=== PATIENT | female | born 1985 ===

== ENCOUNTER 2018-03-15 23:07 | Inpatient (IN) | payer OTHER, SELFPAY ==
[2018-03-15 23:21] VITALS: BP 133/86; PULSE 71; RESP 16; TEMP 35.9; O2SAT 100; BMI 48.4
[2018-03-15] MEDS: ONDANSETRON 4 MG ODT PO (23:34)
[2018-03-16] VITALS (11 sets, daily range): BP systolic 106–136; BP diastolic 59–84; PULSE 55–77; RESP 15–18; TEMP 36.2–36.9; O2SAT 97–100; BMI 48.4
--- NOTE | 2018-03-16 | DI.MRI.S_ITS ---
PROCEDURE: MR ABDOMEN WO CON INDICATIONS: Pancreatitis TECHNIQUE: Coronal HASTE through the abdomen, axial 2-D FLASH in- and [id number], and breath-hold T2 FSE with fat saturation through the biliary system and pancreas. Oblique coronal and axial thin-slice HASTE, radial thick-slab HASTE centered on the extrahepatic bile ducts. Intravenous secretin: Not requested. COMPARISON: [facility], US, US ABDOMEN COMPLETE, 03/16/2018, 5:37. FINDINGS: Image quality: Suboptimal due to the patient's body habitus and significant motion artifacts. Pancreas and biliary system: There are gallstones. Gallbladder wall is thickened. There is trace pericholecystic fluid. Intra- and extra-hepatic biliary ducts are non dilated. Pancreas is normal in morphology, without adjacent soft tissue edema. Pancreatic duct is normal in caliber, without developmental anomalies. Other solid organs: Liver is normal in size. Spleen is normal in size. No adrenal nodules. Both kidneys are normal in size, without hydronephrosis. Nodes and vessels: No retroperitoneal or mesenteric adenopathy by size criteria. Aorta and inferior vena cava are normal in size. Bowel and peritoneum: Unenhanced bowel loops are normal in caliber. No free fluid. Lung bases: No basal pleural effusions. Heart size is normal. Bones and soft tissues: No ventral hernias. Bone marrow is of normal overall signal. IMPRESSION: 1. Cholelithiasis. There is gallbladder wall thickening and trace pericholecystic fluid, consistent with acute cholecystitis. 2. No intrahepatic biliary dilation. 3. Suboptimal examination due to the patient's body habitus and significant motion artifacts. Common hepatic duct and common bile duct are suboptimally visualized. Dictated by: Melissa Torres M.D. on 03/16/2018 at 16:37 Approved by: Melissa Torres M.D. on 03/16/2018 at 16:47
[2018-03-16 00:01] LABS: WBC Urine None Seen (0-5/HPF)
[2018-03-16 00:08] LABS: Bacteria Urine Few (2-10); RBC Urine 5-10/HPF (0-5/HPF)
[2018-03-16 00:09] LABS: Culture Indicated Urine Cult Not Indicated; Mucus Urine 1+ (Negative)
[2018-03-16] MEDS: SODIUM CHLORIDE 0.9% 1,000 ML 1000 ML IV (03:53)
[2018-03-16] MEDS: HALOPERIDOL 5 MG/ML VIAL 2 MG IV (03:53)
[2018-03-16] MEDS: diphenhydrAMINE 50 MG/ML VIAL 25 MG IV (03:54)
[2018-03-16] MEDS: ONDANSETRON 4 MG/2 ML INJ IV (03:55)
[2018-03-16 04:05] LABS: Add Manual Diff / Slide Review NO; Basophils Percent Auto 0.4 % (0-2); Eosinophils Percent Auto 0.2 % (2-4); Hematocrit 38.9 % (36-46); Hemoglobin 13.1 g/dL (12.0-16.0); Lymphocytes Percent Auto 14.7 % (25-40); Mean Corpuscular HGB Conc 33.8 % (30-36); Mean Corpuscular Hemoglobin 29.9 PG (26-34); Mean Corpuscular Volume 88.3 fL (80-100); Monocytes Percent Auto 5.2 % (3-14); Neutrophils Absolute Auto 6400 /uL (3000-5900); Neutrophils Percent Auto 79.5 % (50-75); Platelet Count 289 X10^3/uL (150-400); Red Cell Distribution Width 13.1 % (11.6-14.8)
[2018-03-16 04:18] LABS: Alanine Aminotransferase 477 IU/L (9-52); Albumin 4.7 g/dL (3.5-5.0); Albumin Globulin Ratio 1.2 (1.0-2.8); Alkaline Phosphatase 116 U/L (38-126); Aspartate Aminotransferase 523 IU/L (14-36); BUN Creatinine Ratio 18.6 (6-22); Bilirubin Total 1.1 mg/dL (0.2-1.3); Blood Urea Nitrogen 13 mg/dL (7-17); Calcium 9.7 mg/dL (8.4-10.2); Carbon Dioxide 27 mmol/L (22-32); Chloride 103 mmol/L (98-107); Estimated Glomerular Filt Rate > 60.0 mL/min (>60); Globulin 3.9 g/dL (1.7-4.1); Glucose 137 mg/dL (70-100); HEMOLYSIS < 15 (0-50); Lactate (Lactic Acid) 0.8 mmol/L (0.7-2.1); Lipase 1189 U/L (23-300); Potassium 3.8 mmol/L (3.4-5.1); Sodium 143 mmol/L (137-145); Total Protein 8.6 g/dL (6.3-8.2)
--- NOTE | 2018-03-16 04:43 | DI.US.S_ITS ---
PROCEDURE: US ABDOMEN COMPLETE INDICATIONS: ELEVATED LIVER ENZYMES; PAIN TECHNIQUE: Real-time scanning was performed of the abdominal and retroperitoneal organs, with image documentation. COMPARISON: None. FINDINGS: Liver: Liver is normal in size and demonstrate diffuse increased echotexture. Gallbladder: Gallbladder contains small gallstones. The bladder wall is mildly thickened measuring 3.6 mm. No pericholecystic fluid collection or sonographic Simeon's sign. Biliary ducts: Intrahepatic bile ducts are non-dilated. Extrahepatic bile duct caliber measures 6.3 mm. Normal is 6-7 mm or less in diameter, or 10 mm or less post-cholecystectomy. Pancreas: Visualized portions of the pancreas are sonographically normal. Spleen: Spleen is normal in size and homogeneous in echotexture. Kidneys: Kidneys are normal in size and echotexture. Right kidney measures 12.7 cm long; left kidney measures 12.8 cm long. No hydronephrosis or nephrolithiasis. No solid masses. Aorta: Visualized aorta is normal in caliber at less than 3 cm. Iliacs: Proximal common iliac arteries are normal in caliber at less than 2.5 cm. IVC: Intrahepatic inferior vena cava is patent. Miscellaneous: No free abdominal fluid. IMPRESSION: 1. Cholelithiasis. The gallbladder is mildly thickened. No pericholecystic fluid collection or sonographic Simeon sign. Recommend clinical correlation for early acute cholecystitis. 2. Diffusely increased hepatic echotexture. This finding is most likely secondary to hepatic fatty infiltration although other hepatocellular disease may have a similar appearance. Recommend clinical correlation. No significant discrepancy with the night filler radiology preliminary report. Dictated by: Melissa Torres M.D. on 03/16/2018 at 8:05 Approved by: Melissa Torres M.D. on 03/16/2018 at 8:07
--- NOTE | 2018-03-16 06:11 | ED_ITS ---
HPI - Abdominal Pain General Chief Complaint: Abdominal Pain Stated Complaint: stomach pains History of Present Illness HPI narrative: HPI 32-year-old female with a history of gastric sleeve surgery ~6 months ago presents complaining of poorly characterized epigastric pain of approximately 4 hours duration that radiates across her upper abdomen, no relief without home Zofran, endorses mild nausea, no vomiting, continues to pass flatus and stool at baseline. Patient has had several prior similar episodes following your surgery, has not followed up with her surgeon. No fevers, chills, chest pain, shortness breath, dysuria or urinary frequency. Patient unable to identify or relieving factors. M/S/F/SocHx notable for: please see HPI; remainder reviewed with patient and in chart. ROS: Negative constitutional, eye, cardiovascular, pulmonary, GI, , MSK, skin , neurologic, psychiatric, endocrine unless noted in the HPI. Exam Gen: Pleasant, non-toxic appearing, resting comfortably. HEENT: NC, AT, PEERL, EOMI. Resp: Clear to auscultation bilaterally, normal work of breathing, no accessory muscle usage. Card: Regular rate and rhythm with no murmurs, rubs, or gallops, extremities warm and well perfused. GI: mild epigastric tenderness palpation, otherwise nontender to palpation throughout all quadrants, no focal tenderness at McBurney's point, negative Simeon's sign, non-distended, no rebound or guarding. : No suprapubic tenderness to palpation. MSK: No visible deformities, strength and tone without visually appreciable deficit. Skin: Normal color with no visible lesions. Neuro: AO x 3, no facial asymmetry, vision and hearing WNL. Psych: Mood and affect appropriate. Labs / Imaging: WBC 8.0, Hb 13.1, Na 143, K 3.8, AST 523, ALT 477, lipase 1189, ALP 116, total bilirubin 1.1, lactic 0.8 UA - few bacteria, negative nitrate, negative leukocyte esterase. Ultrasound right upper quadrant: no pericholecystic fluid, anterior wall ~4 mm, dependent stones. Radiologist read pending. MDM Previous chart, nursing note, labs, imaging, and vitals reviewed. A: 32-year-old female with a history of gastric sleeve surgery ~6 months ago presents complaining of poorly characterized epigastric pain of approximately 4 hours duration that radiates across her upper abdomen, no relief without home Zofran, endorses mild nausea, no vomiting, continues to pass flatus and stool at baseline. DDx: biliary disease (cholelithiasis, cholecystitis, cholangitis, choledocholithiasis), pancreatitis, gastritis, GERD Evaluation: laboratory studies concerning for choledocholithiasis, initial interpretation ultrasound (radiologist pending) notable for wall thickening without pericholecystic fluid, no clear evidence of stone in the common bile duct. Discuss case with the surgeon special education bus driver, Dr. Guillen. Patient admitted for further evaluation including possible MRCP and consideration of surgery. Impression: suspected gallstone pancreatitis (please reference below for remainder of encounter information) Related Data Allergies Allergy/AdvReac Type Severity Reaction Status Date / Time SULFA (sulfonamide) Allergy Unknown Uncoded 03/15/18 23:21 Exam Initial Vital Signs Initial Vital Signs: Vital Signs Temperature 96.7 F L 03/15/18 23:21 Pulse Rate 71 03/15/18 23:21 Respiratory Rate 16 03/15/18 23:21 Blood Pressure 133/86 H 03/15/18 23:21 Pulse Oximetry 100 03/15/18 23:21 Course Orders Ordered: ED Orders 03/15/18 23:50 Urine Microscopic Stat 03/16/18 03:55 Complete Blood Count AUTO DIFF Stat Comprehensive Metabolic Panel Stat Lactate (Lactic Acid) Stat Lipase Stat 03/16/18 04:43 US abdomen complete Stat Discontinued Medications Diphenhydramine HCl (Benadryl) 25 mg IV NOW ONE Stop: 03/16/18 01:38 Last Admin: 03/16/18 03:54 Dose: 25 mg Haloperidol (Haldol) 2 mg IV NOW ONE Stop: 03/16/18 01:38 Last Admin: 03/16/18 03:53 Dose: 2 mg Sodium Chloride (Normal Saline 0.9%) 1,000 mls @ 1,000 mls/hr IV BOLUS ONE Stop: 03/16/18 02:36 Last Infusion: 03/16/18 05:12 Dose: 1,000 mls/hr Admin: 03/16/18 03:53 Dose: 1,000 mls/hr Ondansetron HCl (Zofran Odt) 4 mg PO NOW ONE Stop: 03/15/18 23:34 Last Admin: 03/15/18 23:34 Dose: 4 mg Vital Signs - 8 hr 03/15/18 23:21 Temperature 96.7 F L Pulse Rate 71 Respiratory Rate 16 Blood Pressure 133/86 H Pulse Oximetry 100 MDM - Abdominal Pain Lab Data Result diagrams: 03/16/18 03:55 03/16/18 03:55 Lab Results 03/15/18 03/16/18 03/16/18 Range/Units 23:50 03:55 03:55 WBC 8.0 (4.5-11.0) X10^3/uL RBC 4.40 (4.0-5.2) X10^6/uL Hgb 13.1 (12.0-16.0) g/dL Hct 38.9 (36-46) % MCV 88.3 (80-100) fL MCH 29.9 (26-34) PG MCHC 33.8 (30-36) % RDW 13.1 (11.6-14.8) % Plt Count 289 (150-400) X10^3/uL Neut % (Auto) 79.5 H (50-75) % Lymph % (Auto) 14.7 L (25-40) % [place] % (Auto) 5.2 (3-14) % Eos % (Auto) 0.2 L (2-4) % Baso % (Auto) 0.4 (0-2) % Neut # (Auto) 6400 H (3557-1274) /uL Sodium 143 (137-145) mmol/L Potassium 3.8 (3.4-5.1) mmol/L Chloride 103 (98-107) mmol/L Carbon Dioxide 27 (22-32) mmol/L BUN 13 (7-17) mg/dL Creatinine 0.70 (0.52-1.04) mg/dL Estimated GFR > 60.0 (>60) mL/min BUN/Creatinine Ratio 18.6 (6-22) Glucose 137 H (70-100) mg/dL Lactate (0.7-2.1) mmol/L Calcium 9.7 (8.4-10.2) mg/dL Total Bilirubin 1.1 (0.2-1.3) mg/dL AST 523 H (14-36) IU/L ALT 477 H (9-52) IU/L Alkaline Phosphatase 116 (38-126) U/L Total Protein 8.6 H (6.3-8.2) g/dL Albumin 4.7 (3.5-5.0) g/dL Globulin 3.9 (1.7-4.1) g/dL Albumin/Globulin Ratio 1.2 (1.0-2.8) Lipase 1189 H (23-300) U/L Urine RBC 5-10/hpf H (0-5/HPF) Urine WBC None seen (0-5/HPF) Urine Bacteria Few (2-10) H (None) Urine Mucus 1+ H (Negative) Ur Culture Indicated? Cult not indicated Micro UA Comment Not Reportable 03/16/18 Range/Units 03:55 WBC (4.5-11.0) X10^3/uL RBC (4.0-5.2) X10^6/uL Hgb (12.0-16.0) g/dL Hct (36-46) % MCV (80-100) fL MCH (26-34) PG MCHC (30-36) % RDW (11.6-14.8) % Plt Count (150-400) X10^3/uL Neut % (Auto) (50-75) % Lymph % (Auto) (25-40) % [place] % (Auto) (3-14) % Eos % (Auto) (2-4) % Baso % (Auto) (0-2) % Neut # (Auto) (5047-7333) /uL Sodium (137-145) mmol/L Potassium (3.4-5.1) mmol/L Chloride (98-107) mmol/L Carbon Dioxide (22-32) mmol/L BUN (7-17) mg/dL Creatinine (0.52-1.04) mg/dL Estimated GFR (>60) mL/min BUN/Creatinine Ratio (6-22) Glucose (70-100) mg/dL Lactate 0.8 (0.7-2.1) mmol/L Calcium (8.4-10.2) mg/dL Total Bilirubin (0.2-1.3) mg/dL AST (14-36) IU/L ALT (9-52) IU/L Alkaline Phosphatase (38-126) U/L Total Protein (6.3-8.2) g/dL Albumin (3.5-5.0) g/dL Globulin (1.7-4.1) g/dL Albumin/Globulin Ratio (1.0-2.8) Lipase (23-300) U/L Urine RBC (0-5/HPF) Urine WBC (0-5/HPF) Urine Bacteria (None) Urine Mucus (Negative) Ur Culture Indicated? Micro UA Comment Point of care testing: Point of Care Testing Test Results Negative Urine Dip Bedside Urine Glucose Negative Bedside Urine Bilirubin - Negative Bedside Urine Ketone - Negative Urine Specific [place] 1.025 Bedside Urine Occult Blood +++ Bedside Urine pH 6.0 Bedside Urine Protein +/- 15 Bedside Urine Urobilinogen 1+ 2mg Bedside Urine Nitrite - Negative Bedside Urine Leukocytes - Negative Esterase
[2018-03-16] MEDS: SODIUM CHLORIDE 0.9% 1,000 ML 125 ML IV ×2 (07:10→14:42)
--- NOTE | 2018-03-16 07:50 | PC.ADMIT ---
Admission Note: pt arrived at 0645, in stretcher, no fluids running. fluids started. pt tolerant. pt npo. discussed hospital procedures. and admission process with ptMargaret Davison in to receive report. will continue to monitor.
[2018-03-16 14:39] LABS: Alanine Aminotransferase 868 IU/L (9-52); Albumin 4.1 g/dL (3.5-5.0); Albumin Globulin Ratio 1.1 (1.0-2.8); Alkaline Phosphatase 129 U/L (38-126); Aspartate Aminotransferase 697 IU/L (14-36); BUN Creatinine Ratio 12.9 (6-22); Bilirubin Total 1.2 mg/dL (0.2-1.3); Blood Urea Nitrogen 9 mg/dL (7-17); Calcium 9.5 mg/dL (8.4-10.2); Carbon Dioxide 27 mmol/L (22-32); Chloride 107 mmol/L (98-107); Estimated Glomerular Filt Rate > 60.0 mL/min (>60); Globulin 3.6 g/dL (1.7-4.1); Glucose 90 mg/dL (70-100); HEMOLYSIS < 15 (0-50); Lipase 356 U/L (23-300); Potassium 3.7 mmol/L (3.4-5.1); Sodium 144 mmol/L (137-145); Total Protein 7.7 g/dL (6.3-8.2)
--- NOTE | 2018-03-16 15:11 | PM.HP.1 ---
History of Present Illness Date Patient Seen: 03/16/18 Time Patient Seen: 10:11 Chief complaint: stomach pains Narrative: Vero is a pleasant 32-year-old lady who was visiting friends. She reports that she and her 7-year-old son live in [place] again and she had some time off so she came to visit a close friend. She developed abdominal pain last night that was severe enough to bring her to the emergency room. This is not the 1st such episode. She reports that she has had them at least once or twice in the past and been seen in the emergency room in [place]. She says nothing ever comes of the pain and she is generally given something for nausea and sent home. She adds that she had a gastric sleeve operation about 10 months ago. She has lost approximately 100 lb. She was not aware that she has gallstones prior to this admission. Currently, she says she is completely pain-free. She wants to avoid having surgery away from home and would like very much to be able to go back to [place] before having any sort of operative intervention. Patient History Medical History Diabetes (Acute) Family & Social History Social History: household members children Safety & Behavioral: Feels Safe in Current Yes Environment Suicidal Ideation Description None Tobacco & Substance use: Smoking Status Former smoker alcohol intake frequency holiday/special occasion Substance Use Type does not use Meds Home Medications Medication Instructions Recorded Confirmed Type atorvastatin 10 mg PO DAILY 03/16/18 03/16/18 History metformin 2,000 mg PO BID 03/16/18 03/16/18 History sertraline 100 mg PO DAILY 03/16/18 03/16/18 History Allergies Allergy/AdvReac Type Severity Reaction Status Date / Time SULFA (sulfonamide) Allergy Unknown Uncoded 03/15/18 23:21 Review of Systems Review of Systems All systems reviewed & are unremarkable except as noted in HPI and below Exam Vital Signs (past 8 hours): - 03/16/18 08:00 03/16/18 13:00 03/16/18 13:06 Temperature 97.7 F 98.3 F 98.3 F Pulse Rate 61 66 66 Respiratory Rate 16 15 15 Blood Pressure 106/64 134/73 H Pulse Oximetry 97 99 99 Oxygen Delivery Method Room Air Narrative Exam Narrative: Very pleasant young woman in no obvious distress. HEENT: Normocephalic and atraumatic, pupils are equal round and reactive to light accommodation with anicteric sclera Lungs: Clear bilaterally Heart: Regular rate and rhythm Abdomen: Soft, rotund, active bowel sounds. No tenderness to palpation in any portion of the abdomen. No peritoneal signs. No clear evidence of hernias appreciated. Extremities: Warm and well perfused. No edema Objective Labs Result Diagrams: 03/16/18 03:55 03/16/18 14:19 Labs: Laboratory Results - last 24 hr 03/15/18 03/16/18 03/16/18 23:50 03:55 03:55 WBC 8.0 RBC 4.40 Hgb 13.1 Hct 38.9 MCV 88.3 MCH 29.9 MCHC 33.8 RDW 13.1 Plt Count 289 Neut % (Auto) 79.5 H Lymph % (Auto) 14.7 L [place] % (Auto) 5.2 Eos % (Auto) 0.2 L Baso % (Auto) 0.4 Neut # (Auto) 6400 H Sodium 143 Potassium 3.8 Chloride 103 Carbon Dioxide 27 BUN 13 Creatinine 0.70 Estimated GFR > 60.0 BUN/Creatinine Ratio 18.6 Glucose 137 H Lactate Calcium 9.7 Total Bilirubin 1.1 AST 523 H ALT 477 H Alkaline Phosphatase 116 Total Protein 8.6 H Albumin 4.7 Globulin 3.9 Albumin/Globulin Ratio 1.2 Lipase 1189 H Urine RBC 5-10/hpf H Urine WBC None seen Urine Bacteria Few (2-10) H Urine Mucus 1+ H Ur Culture Indicated? Cult not indicated Micro UA Comment Not Reportable 03/16/18 03/16/18 03:55 14:19 WBC RBC Hgb Hct MCV MCH MCHC RDW Plt Count Neut % (Auto) Lymph % (Auto) [place] % (Auto) Eos % (Auto) Baso % (Auto) Neut # (Auto) Sodium 144 Potassium 3.7 Chloride 107 Carbon Dioxide 27 BUN 9 Creatinine 0.70 Estimated GFR > 60.0 BUN/Creatinine Ratio 12.9 Glucose 90 Lactate 0.8 Calcium 9.5 Total Bilirubin 1.2 AST 697 H ALT 868 H Alkaline Phosphatase 129 H Total Protein 7.7 Albumin 4.1 Globulin 3.6 Albumin/Globulin Ratio 1.1 Lipase 356 H D Urine RBC Urine WBC Urine Bacteria Urine Mucus Ur Culture Indicated? Micro UA Comment [address] [address] Ultrasound Report Signed Patient: Vero Plummer MR#: [id number] : 1985 Acct:[id number] Age/Sex: 32 / F Date of Service: 03/16/18 Loc: 222-1 Accession Number: [id number] Procedure: US abdomen complete Ordering Provider: Jorge Howard M.D. PROCEDURE: US ABDOMEN COMPLETE INDICATIONS: ELEVATED LIVER ENZYMES; PAIN TECHNIQUE: Real-time scanning was performed of the abdominal and retroperitoneal organs, with image documentation. COMPARISON: None. FINDINGS: Liver: Liver is normal in size and demonstrate diffuse increased echotexture. Gallbladder: Gallbladder contains small gallstones. The bladder wall is mildly thickened measuring 3.6 mm. No pericholecystic fluid collection or sonographic Simeon's sign. Biliary ducts: Intrahepatic bile ducts are non-dilated. Extrahepatic bile duct caliber measures 6.3 mm. Normal is 6-7 mm or less in diameter, or 10 mm or less post-cholecystectomy. Pancreas: Visualized portions of the pancreas are sonographically normal. Spleen: Spleen is normal in size and homogeneous in echotexture. Kidneys: Kidneys are normal in size and echotexture. Right kidney measures 12.7 cm long; left kidney measures 12.8 cm long. No hydronephrosis or nephrolithiasis. No solid masses. Aorta: Visualized aorta is normal in caliber at less than 3 cm. Iliacs: Proximal common iliac arteries are normal in caliber at less than 2.5 cm. IVC: Intrahepatic inferior vena cava is patent. Miscellaneous: No free abdominal fluid. IMPRESSION: 1. Cholelithiasis. The gallbladder is mildly thickened. No pericholecystic fluid collection or sonographic Simeon sign. Recommend clinical correlation for early acute cholecystitis. 2. Diffusely increased hepatic echotexture. This finding is most likely secondary to hepatic fatty infiltration although other hepatocellular disease may have a similar appearance. Recommend clinical correlation. No significant discrepancy with the production shift supervisor radiology preliminary report. Dictated by: Melissa Torres M.D. on 03/16/2018 at 8:05 Approved by: Melissa Torres M.D. on 03/16/2018 at 8:07 Assessment & Plan Plan: Assessment/Plan Narrative: Very pleasant 32-year-old lady with recent significant weight loss. At the time of admission she had significant evidence of pancreatic inflammation but that has improved over the last several hours. She has significant perturbation of her transaminases and they are trending up as opposed to improving. I think the most likely diagnosis, but certainly not the only 1, is gallstone pancreatitis. Patient would very much like to return to [place] and that is understandable. There she has the help of her mother and other relatives in caring for her son while she is ill. I have recommended that we obtain an MRCP so that we understand the anatomy and her wrists of passing another stone in the near future. I have also recommended that we repeat her studies this afternoon as we have done and will repeat them again in the morning. As long as we can get crystal to a safe condition, she could be discharged in the operations management professionals to returned or again and follow up with her physicians and the hospital there.
--- NOTE | 2018-03-16 15:14 | P.HP_ITS ---
History of Present Illness Date Patient Seen: 03/16/18 Time Patient Seen: 10:11 Chief complaint: stomach pains Narrative: Vero is a pleasant 32-year-old lady who was visiting friends. She reports that she and her 7-year-old [place] and she had some time off so she came to visit a close friend. She developed abdominal pain last night that was severe enough to bring her to the emergency room. This is not the 1st such episode. She reports that she has had them at least once or twice in the past and been seen in the emergency room in [place]. She says nothing ever comes of the pain and she is generally given something for nausea and sent home. She adds that she had a gastric sleeve operation about 10 months ago. She has lost approximately 100 lb. She was not aware that she has gallstones prior to this admission. Currently, she says she is completely pain- free. She wants to avoid having surgery away from home and would like very much to be able to go back to [place] before having any sort of operative intervention. Patient History Medical History Diabetes (Acute) Family & Social History Social History: household members children Safety & Behavioral: Feels Safe in Current Yes Environment Suicidal Ideation Description None Tobacco & Substance use: Smoking Status Former smoker alcohol intake frequency holiday/special occasion Substance Use Type does not use Meds Home Medications Medication Instructions Recorded Confirmed Type atorvastatin 10 mg PO DAILY 03/16/18 03/16/18 History metformin 2,000 mg PO BID 03/16/18 03/16/18 History sertraline 100 mg PO DAILY 03/16/18 03/16/18 History Allergies Allergy/AdvReac Type Severity Reaction Status Date / Time SULFA (sulfonamide) Allergy Unknown Uncoded 03/15/18 23:21 Review of Systems Review of Systems All systems reviewed & are unremarkable except as noted in HPI and below Exam Vital Signs (past 8 hours): - 03/16/18 08:00 03/16/18 13:00 03/16/18 13:06 Temperature 97.7 F 98.3 F 98.3 F Pulse Rate 61 66 66 Respiratory Rate 16 15 15 Blood Pressure 106/64 134/73 H Pulse Oximetry 97 99 99 Oxygen Delivery Method Room Air Narrative Exam Narrative: Very pleasant young woman in no obvious distress. HEENT: Normocephalic and atraumatic, pupils are equal round and reactive to light accommodation with anicteric sclera Lungs: Clear bilaterally Heart: Regular rate and rhythm Abdomen: Soft, rotund, active bowel sounds. No tenderness to palpation in any portion of the abdomen. No peritoneal signs. No clear evidence of hernias appreciated. Extremities: Warm and well perfused. No edema Objective Labs Result Diagrams: 03/16/18 03:55 03/16/18 14:19 Labs: Laboratory Results - last 24 hr 03/15/18 03/16/18 03/16/18 23:50 03:55 03:55 WBC 8.0 RBC 4.40 Hgb 13.1 Hct 38.9 MCV 88.3 MCH 29.9 MCHC 33.8 RDW 13.1 Plt Count 289 Neut % (Auto) 79.5 H Lymph % (Auto) 14.7 L Saline % (Auto) 5.2 Eos % (Auto) 0.2 L Baso % (Auto) 0.4 Neut # (Auto) 6400 H Sodium 143 Potassium 3.8 Chloride 103 Carbon Dioxide 27 BUN 13 Creatinine 0.70 Estimated GFR > 60.0 BUN/Creatinine Ratio 18.6 Glucose 137 H Lactate Calcium 9.7 Total Bilirubin 1.1 AST 523 H ALT 477 H Alkaline Phosphatase 116 Total Protein 8.6 H Albumin 4.7 Globulin 3.9 Albumin/Globulin Ratio 1.2 Lipase 1189 H Urine RBC 5-10/hpf H Urine WBC None seen Urine Bacteria Few (2-10) H Urine Mucus 1+ H Ur Culture Indicated? Cult not indicated Micro UA Comment Not Reportable 03/16/18 03/16/18 03:55 14:19 WBC RBC Hgb Hct MCV MCH MCHC RDW Plt Count Neut % (Auto) Lymph % (Auto) Saline % (Auto) Eos % (Auto) Baso % (Auto) Neut # (Auto) Sodium 144 Potassium 3.7 Chloride 107 Carbon Dioxide 27 BUN 9 Creatinine 0.70 Estimated GFR > 60.0 BUN/Creatinine Ratio 12.9 Glucose 90 Lactate 0.8 Calcium 9.5 Total Bilirubin 1.2 AST 697 H ALT 868 H Alkaline Phosphatase 129 H Total Protein 7.7 Albumin 4.1 Globulin 3.6 Albumin/Globulin Ratio 1.1 Lipase 356 H D Urine RBC Urine WBC Urine Bacteria Urine Mucus Ur Culture Indicated? Micro UA Comment [address] [address] Ultrasound Report Signed Patient: Vero Plummer MR#: [id number] : 1985 Acct:[id number] Age/Sex: 32 / F Date of Service: 03/16/18 Loc: 222-1 Accession Number: [id number] Procedure: US abdomen complete Ordering Provider: Jorge Howard M.D. PROCEDURE: US ABDOMEN COMPLETE INDICATIONS: ELEVATED LIVER ENZYMES; PAIN TECHNIQUE: Real-time scanning was performed of the abdominal and retroperitoneal organs, with image documentation. COMPARISON: None. FINDINGS: Liver: Liver is normal in size and demonstrate diffuse increased echotexture. Gallbladder: Gallbladder contains small gallstones. The bladder wall is mildly thickened measuring 3.6 mm. No pericholecystic fluid collection or sonographic Simeon's sign. Biliary ducts: Intrahepatic bile ducts are non-dilated. Extrahepatic bile duct caliber measures 6.3 mm. Normal is 6-7 mm or less in diameter, or 10 mm or less post-cholecystectomy. Pancreas: Visualized portions of the pancreas are sonographically normal. Spleen: Spleen is normal in size and homogeneous in echotexture. Kidneys: Kidneys are normal in size and echotexture. Right kidney measures 12.7 cm long; left kidney measures 12.8 cm long. No hydronephrosis or nephrolithiasis. No solid masses. Aorta: Visualized aorta is normal in caliber at less than 3 cm. Iliacs: Proximal common iliac arteries are normal in caliber at less than 2.5 cm. IVC: Intrahepatic inferior vena cava is patent. Miscellaneous: No free abdominal fluid. IMPRESSION: 1. Cholelithiasis. The gallbladder is mildly thickened. No pericholecystic fluid collection or sonographic Simeon sign. Recommend clinical correlation for early acute cholecystitis. 2. Diffusely increased hepatic echotexture. This finding is most likely secondary to hepatic fatty infiltration although other hepatocellular disease may have a similar appearance. Recommend clinical correlation. No significant discrepancy with the night [facility] radiology preliminary report. Dictated by: Melissa Torres M.D. on 03/16/2018 at 8:05 Approved by: Melissa Torres M.D. on 03/16/2018 at 8:07 Assessment & Plan Plan: Assessment/Plan Narrative: Very pleasant 32-year-old lady with recent significant weight loss. At the time of admission she had significant evidence of pancreatic inflammation but that has improved over the last several hours. She has significant perturbation of her transaminases and they are trending up as opposed to improving. I think the most likely diagnosis, but certainly not the only 1, is gallstone pancreatitis. Patient would very much like to return to [place] and that is understandable. There she has the help of her mother and other relatives in caring for her son while she is ill. I have recommended that we obtain an MRCP so that we understand the anatomy and her wrists of passing another stone in the near future. I have also recommended that we repeat her studies this afternoon as we have done and will repeat them again in the morning. 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
--- NOTE | 2018-03-16 15:18 | CM.DANOTE ---
Discharge Planning/Care Management Patient is a 32 year old female who was admitted on 03/16/18 for Stomach Pains. Pt has [employer] for insurance and her PCP is Dr. Pollock. EMR was reviewed. Per Surgeon, waiting for MRCP test to determine if surgery is needed and pt has a hx of surgical procedure less than a year ago. Per RN, MRCP will likely be done this afternoon late due to the holiday. SW met bedside with pt and friend and explained role and pt confirmed that she is from [facility] but now resides in [place] with her children and is here visiting family/friends. Pt had surgical procedure about 10 months ago and has had boughts of stomach pains. Pt is typically independent with ADL's at baseline and drives. Surgeon discussed the option that if she needs surgery she could complete the procedure here or in [place] and pt has opted for [place] if surgery is needed. Pt states that her friend can drive her home to [place] using the pt's car and then take the train back to [facility] so that the pt is not driving herself back home. Plan: SW to follow closely after the MRCP test to determine d/c needs and likely plan of discharge home when medically stable. Pt wanting to d/c to [place] and completing surgery there if needed. 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 Is this patient on Medicare? No Is the admit diagnosis the same? No Prior Living Arrangements House Household Members children Type of transporation used prior to Drives own vehicle admit Comment From here but now lives in [place] and here visiting family/friends. Independent with ADL's Yes Is patient alert and oriented? Yes Caregiver for Another No: own kids Referrals Initiated None needed Comment Waiting to determine if surgery is needed. Discharge Plan Home Transportation Arrangement Pt has a friend who can drive her back to [place] and then take the train back here. Review Status In Process Next Review Type Discharge Review
--- NOTE | 2018-03-16 15:42 | PC.NURSE ---
1500 Pt has denied any abd pain this shift.
[2018-03-17] MEDS: SODIUM CHLORIDE 0.9% 1,000 ML 125 ML IV (01:37)
[2018-03-17 05:09] LABS: Add Manual Diff / Slide Review NO; Basophils Percent Auto 0.6 % (0-2); Eosinophils Percent Auto 1.5 % (2-4); Hematocrit 31.8 % (36-46); Lymphocytes Percent Auto 41.8 % (25-40); Mean Corpuscular HGB Conc 34.4 % (30-36); Mean Corpuscular Hemoglobin 30.1 PG (26-34); Mean Corpuscular Volume 87.5 fL (80-100); Monocytes Percent Auto 6.2 % (3-14); Neutrophils Absolute Auto 2700 /uL (3000-5900); Neutrophils Percent Auto 49.9 % (50-75); Platelet Count 229 X10^3/uL (150-400); Red Blood Cell Count 3.64 X10^6/uL (4.0-5.2); Red Cell Distribution Width 13.5 % (11.6-14.8); White Blood Cell Count 5.4 X10^3/uL (4.5-11.0)
[2018-03-17 05:23] LABS: Alanine Aminotransferase 608 IU/L (9-52); Albumin 3.6 g/dL (3.5-5.0); Albumin Globulin Ratio 1.1 (1.0-2.8); Alkaline Phosphatase 110 U/L (38-126); Aspartate Aminotransferase 268 IU/L (14-36); BUN Creatinine Ratio 16.7 (6-22); Bilirubin Total 0.6 mg/dL (0.2-1.3); Blood Urea Nitrogen 10 mg/dL (7-17); Carbon Dioxide 24 mmol/L (22-32); Chloride 108 mmol/L (98-107); Estimated Glomerular Filt Rate > 60.0 mL/min (>60); Globulin 3.3 g/dL (1.7-4.1); Glucose 87 mg/dL (70-100); HEMOLYSIS < 15 (0-50); Potassium 3.2 mmol/L (3.4-5.1); Sodium 140 mmol/L (137-145); Total Protein 6.9 g/dL (6.3-8.2)
[2018-03-17 05:32] LABS: Lipase 214 U/L (23-300)
[2018-03-17 06:10] VITALS: BP 121/75; PULSE 56; RESP 16; TEMP 36.7; O2SAT 98
[2018-03-17 08:00] VITALS: BP 126/60; PULSE 63; RESP 16; TEMP 36.6; O2SAT 98
--- NOTE | 2018-03-17 10:23 | PM.PREOP ---
Pre-operative Note Interval Note Pre-op Check: History & Physical Reviewed by Physician ASA Class (for procedural sedation): II
--- NOTE | 2018-03-17 10:28 | P.OP_ITS ---
Operative Date/Time/Diagnoses - Date of procedure: 03/17/18 Time of procedure: 10:24 Pre-op diagnosis: Abnormal CT scan with cecal mass Post-op diagnosis: same Procedure & Clinicians Procedure: Colonoscopy to the cecum with polypectomy times 2 and biopsy Same procedure as scheduled: Yes Indications: Cecal mass noted on CT scan Surgeon: Michelle Guillen Anesthesia Type: Sedation Operative Notes Findings: 1. Excellent prep 2. Mass within the cecum covering approximately 1/4 of the wall. 3. A 2nd cecal mass approximately 1 and half to 2 cm in total dimension-this 1 was completely removed and retained for pathology 4. 5 mm polyp just distal to the opening of the cecum 5. Pandiverticulosis with the most impressive and pronounced disease in the sigmoid colon with multiple false passages and large and small tecs 6. Grade 1-2 internal hemorrhoids Closure Type: not applicable Specimen(s): other (Polyps from the cecum) Estimated Blood Loss (mL): 1 Procedure in detail: After obtaining informed consent, the patient was brought to the GI suite and placed in the left lateral decubitus position on the examination table. After placement of appropriate monitors, the patient was given incremental doses of Versed and Fentanyl until an appropriate level of sedation was achieved. A time out was held per SCOAP protocol. A digital rectal examination was performed and did not reveal any masses or obstructing lesions. The colonoscope was gently passed into the patient's anus and the entire colon navigated to the level of the cecum with moderate difficulty due to colon laxity in severity of diverticulosis. Once in the cecum , we noted 3 separate lesions. The 1st was a little less than a cm and semi pedunculated. The 2nd was 1 or 2 cm and also semi pedunculated although flattened out beyond the stalk. The 3rd was large and flat covering approximately 1/4 of the cecal wall. This 1 was only biopsied as we were not able to remove it. The scope was withdrawn being sure to go before and beyond all mucosal folds and prominences and get an excellent examination. The findings are noted above. At the level of the rectal vault, the scope was retroflexed and the internal anal canal was examined. The scope was straightened and air aspirated from the colon. The instrument was removed from the patient's body and the procedure was concluded. The patient was allowed to awaken from sedation without difficulty and taken to the post-anesthesia care unit in good condition. Complications: none Condition: stable Disposition: PACU Plan for aftercare: Recommend right hemicolectomy in the very near future. Further recommendations based on pathology
--- NOTE | 2018-03-17 17:40 | P.DS_ITS ---
History of Present Illness Chief complaint: stomach pains Narrative: Vero is a pleasant 32-year-old lady who was visiting friends. She reports that she and her 7-year-old son live [place] and she had some time off so she came to visit a close friend. She developed abdominal pain last night that was severe enough to bring her to the emergency room. This is not the 1st such episode. She reports that she has had them at least once or twice in the past and been seen in the emergency room in [place]. She says nothing ever comes of the pain and she is generally given something for nausea and sent home. She adds that she had a gastric sleeve operation about 10 months ago. She has lost approximately 100 lb. She was not aware that she has gallstones prior to this admission. Currently, she says she is completely pain- free. She wants to avoid having surgery away from home and would like very much to be able to go back to [place] before having any sort of operative intervention. Discharge Providers Date of admission: 03/16/18 06:15 Primary care physician: Darci Pollock MD Consults: 03/16/18 06:11 Consult to General Surgery Routine Comment: Consulting Provider: Michelle Guillen Reason for consultation: gallstone pancreatitis Has provider been notified: Yes Discharge provider: Michelle Guillen MD Summary Discharge Diagnosis: Gallstone pancreatitis Hospital Course: Vero was admitted to our facility overnight. She underwent an MRCP and repeat laboratory studies. Her pain resolved shortly after admission and did not recur during her short. MRCP showed no evidence of other stones within the bile duct. Repeat labs revealed her bilirubin to be back to normal and lipase to be normalizing. Transaminases were still elevated but normalizing. On the day of discharge she is without pain and eating a low-fat diet without difficulty. Status at Discharge Cognitive/behavioral status at discharge: Normal Functional status at discharge: independent ambulation Overall status at discharge: patient is back to baseline Time Spent with Patient Less than 30 minutes Exam Vital Signs (past 8 hours): Oxygen Delivery Method Room Air Narrative Exam Narrative: Pleasant lady in no distress HEENT: Normocephalic and atraumatic, pupils equal round reactive to light accommodation with anicteric sclera Lungs: Clear bilaterally Heart: Regular rate and rhythm Abdomen: Soft, nontender, active bowel sounds Extremities: Warm and well perfused Objective Labs Result Diagrams: 03/17/18 04:55 07/05/18 04:55 Labs: Laboratory Results - last 24 hr 03/17/18 03/17/18 03/17/18 04:55 04:55 04:55 WBC 5.4 RBC 3.64 L Hgb 11.0 L Hct 31.8 L MCV 87.5 MCH 30.1 MCHC 34.4 RDW 13.5 Plt Count 229 Neut % (Auto) 49.9 L D Lymph % (Auto) 41.8 H D [place] % (Auto) 6.2 Eos % (Auto) 1.5 L Baso % (Auto) 0.6 Neut # (Auto) 2700 L Sodium 140 Potassium 3.2 L Chloride 108 H Carbon Dioxide 24 BUN 10 Creatinine 0.60 Estimated GFR > 60.0 BUN/Creatinine Ratio 16.7 Glucose 87 Calcium 9.0 Total Bilirubin 0.6 AST 268 H ALT 608 H Alkaline Phosphatase 110 Total Protein 6.9 Albumin 3.6 Globulin 3.3 Albumin/Globulin Ratio 1.1 Lipase 214 Discharge Plan Discharge Plan Patient Disposition: Home, Self-Care Discharge comment: Patient has contacted her surgeon in [place] and will follow up with them Provider Discharge Instructions Diet: Low-fat Wound Care Report to your healthcare provider any signs of infection, such as:: chills, fever, night sweats and increased pain Discharge Data Primary Care Provider: Darci Pollock Attending Provider: Michelle Guillen Admit Date/Time: 03/16/18 06:15 Discharges patient from system. Discharge Date/Time: 03/17/18 12:34
== END 2018-03-17 12:34 | disposition home or self-care (01) | DRG 439 ==
LOC: ED 03-16 06:13 → AC 03-16 06:17
PROVIDERS: Admitting Provider Surgery; Emergency Provider Emergency Medicine; PCP Family Medicine; Visit Provider Surgery
DX: K85.10 Biliary acute pancreatitis without necrosis or infection (principal); Z68.42 Body mass index [BMI] 45.0-49.9, adult; Z98.84 Bariatric surgery status; Z87.891 Personal history of nicotine dependence; E66.01 Morbid (severe) obesity due to excess calories
CPT/HCPCS: 36415; 36591; 74181; 76700; 80053; 81003; 81015; 81025; 82962; 83605; 83690; 85025; 99283; J1200; J1630; J2405

== ENCOUNTER 2018-03-17 23:10 | Inpatient (IN) | payer OTHER, SELFPAY ==
[2018-03-16 08:16] VITALS: BMI 48.4
[2018-03-17 23:15] VITALS: BP 117/71; PULSE 80; RESP 17; TEMP 37.1; O2SAT 100; BMI 48.4
--- NOTE | 2018-03-17 23:45 | ED.ABDPAIN ---
HPI - Abdominal Pain General Chief Complaint: Abdominal Pain Stated Complaint: abdomen pain, nausea Time Seen by Provider: 03/17/18 23:45 Source: patient Mode of arrival: ambulatory Limitations: no limitations History of Present Illness HPI narrative: The patient was recently admitted with biliary colic and gallstone pancreatitis. She is from [place]. After admission the pain resolved. Cholecystectomy is planned, however the patient hoped to return home to [place]. She was discharged earlier today. She stopped to eat after discharge. She developed severe right upper quadrant pain radiating to the back once again. She has had no fever. She has no nausea vomiting at this time. She has decided to return, hopefully for readmission for cholecystectomy. Her medical history is otherwise benign. Related Data Home Medications Medication Instructions Recorded Confirmed atorvastatin 10 mg PO DAILY 03/16/18 03/16/18 metformin 2,000 mg PO BID 03/16/18 03/16/18 sertraline 100 mg PO DAILY 03/16/18 03/16/18 Allergies Allergy/AdvReac Type Severity Reaction Status Date / Time SULFA (sulfonamide) Allergy Unknown Uncoded 03/17/18 23:30 Review of Systems Constitutional Denies chills, Denies fever(s), Denies lethargy and Denies weakness ENT Ears, Nose, Mouth, and Throat: Reports other (No sore throat) Cardiovascular Denies chest pain, Denies palpitations and Denies dyspnea Respiratory Denies chest congestion, Denies cough and Denies dyspnea Gastrointestinal Gastrointestinal: Reports as per HPI, Reports abdominal pain, Denies dyspepsia, Denies heartburn, Denies diarrhea and Denies vomiting Genitourinary Denies urinary frequency and Reports other (She is currently on her menstrual cycle.) Musculoskeletal Denies joint swelling and Reports other (No edema) Integumentary/Breasts Denies erythema and Denies rash Neurologic Denies confusion, Denies focal weakness and Denies weakness Psychiatric Denies confusion Endocrine Denies palpitations [facility] Medical History Cholelithiasis (Acute) Diabetes (Acute) Social History household members: children Smoking Status: Former smoker Exam Initial Vital Signs Initial Vital Signs: Vital Signs Temperature 98.7 F 03/17/18 23:15 Pulse Rate 80 03/17/18 23:15 Respiratory Rate 17 03/17/18 23:15 Blood Pressure 117/71 03/17/18 23:15 Pulse Oximetry 100 03/17/18 23:15 Const General: cooperative, healthy appearing and well developed Nutritional Appearance: well nourished Orientation: alert, awake and oriented x3 HENMT Head: normocephalic and atraumatic Mouth: oral mucosae normal Eyes Conjunctivae: conjunctivae normal Sclera: sclerae normal Resp Effort & Inspection: normal respiratory effort, able to speak in complete sentences, no respiratory distress and no use of accessory muscles Auscultation: clear to auscultation bilaterally, no rales, no rhonchi and no wheezes Cardio Rate: regular rate Rhythm: regular rhythm Heart Sounds: no click, no gallops, no murmurs and no rubs Pulses: normal peripheral pulses GI Palpation: No hepatomegaly and tender (Right upper quadrant tenderness with guarding but no rebound. No distention.) Auscultation: normal bowel sounds Back/Spine/Pelvis Back: No CVA tenderness Skin General: no rashes or lesions noted Extrem General: no pedal edema and no calf tenderness Course Orders Ordered: ED Orders 03/17/18 23:40 Complete Blood Count AUTO DIFF Stat Comprehensive Metabolic Panel Stat Lipase Stat Partial Thromboplastin Time Stat Prothrombin Time INR Stat Sodium Chloride (Normal Saline 0.9%) 1,000 mls @ 150 mls/hr IV CONT PHILLY Last Admin: 03/18/18 00:07 Dose: 150 mls/hr Sodium Chloride (Normal Saline 0.9%) 1,000 mls @ 150 mls/hr IV CONT PHILLY Discontinued Medications Ketorolac Tromethamine (Toradol) 30 mg IV NOW ONE Stop: 03/17/18 23:54 Last Admin: 03/18/18 00:05 Dose: 30 mg Vital Signs - 8 hr 03/17/18 23:15 Temperature 98.7 F Pulse Rate 80 Respiratory Rate 17 Blood Pressure 117/71 Pulse Oximetry 100 MDM - Abdominal Pain Lab Data Attestation: I reviewed the patient's lab results. Result diagrams: 03/17/18 23:40 03/17/18 23:40 Lab Results 03/17/18 03/17/18 03/17/18 Range/Units 23:40 23:40 23:40 WBC 8.6 D (4.5-11.0) X10^3/uL RBC 4.16 (4.0-5.2) X10^6/uL Hgb 12.5 (12.0-16.0) g/dL Hct 36.6 (36-46) % MCV 87.9 (80-100) fL MCH 30.0 (26-34) PG MCHC 34.1 (30-36) % RDW 13.1 (11.6-14.8) % Plt Count 298 (150-400) X10^3/uL Neut % (Auto) 66.2 (50-75) % Lymph % (Auto) 27.3 (25-40) % [place] % (Auto) 5.4 (3-14) % Eos % (Auto) 0.6 L (2-4) % Baso % (Auto) 0.5 (0-2) % Neut # (Auto) 5700 (8868-1350) /uL PT 11.1 (10.1-12.7) SECONDS INR 1.0 (0.9-1.3) APTT 32 (26.4-36.2) SECONDS Sodium 142 (137-145) mmol/L Potassium 3.5 (3.4-5.1) mmol/L Chloride 106 (98-107) mmol/L Carbon Dioxide 22 (22-32) mmol/L BUN 11 (7-17) mg/dL Creatinine 0.80 (0.52-1.04) mg/dL Estimated GFR > 60.0 (>60) mL/min BUN/Creatinine Ratio 13.8 (6-22) Glucose 114 H (70-100) mg/dL Calcium 10.0 (8.4-10.2) mg/dL Total Bilirubin 0.7 (0.2-1.3) mg/dL AST 226 H (14-36) IU/L ALT 591 H (9-52) IU/L Alkaline Phosphatase 161 H (38-126) U/L Total Protein 8.7 H (6.3-8.2) g/dL Albumin 4.6 (3.5-5.0) g/dL Globulin 4.1 (1.7-4.1) g/dL Albumin/Globulin Ratio 1.1 (1.0-2.8) Lipase 298 (23-300) U/L [facility] Narrative Medical decision making narrative: The patient was initially admitted for cholecystectomy. She has recurrence of significant biliary colic. Dr. Guillen has agreed to readmit the patient, with the plan to for the patient to undergo cholecystectomy. Discharge Plan Departure Patient Disposition: Admitted As Inpatient Clinical Impression: Acute cholecystitis Prescriptions: No Action sertraline 100 mg Tablet 100 mg PO DAILY RF: 0 atorvastatin 10 mg Tablet 10 mg PO DAILY RF: 0 metformin 1,000 mg Tablet 2,000 mg PO BID RF: 0
[2018-03-17 23:57] LABS: Prothrombin Time 11.1 SECONDS (10.1-12.7)
[2018-03-18] LABS: Add Manual Diff / Slide Review NO; Basophils Percent Auto 0.5 % (0-2); Eosinophils Percent Auto 0.6 % (2-4); Hematocrit 36.6 % (36-46); Hemoglobin 12.5 g/dL (12.0-16.0); Lymphocytes Percent Auto 27.3 % (25-40); Mean Corpuscular HGB Conc 34.1 % (30-36); Mean Corpuscular Volume 87.9 fL (80-100); Monocytes Percent Auto 5.4 % (3-14); Neutrophils Absolute Auto 5700 /uL (3000-5900); Neutrophils Percent Auto 66.2 % (50-75); Platelet Count 298 X10^3/uL (150-400); Red Blood Cell Count 4.16 X10^6/uL (4.0-5.2); Red Cell Distribution Width 13.1 % (11.6-14.8); White Blood Cell Count 8.6 X10^3/uL (4.5-11.0)
[2018-03-18] MEDS: KETOROLAC 60 MG/2 ML VIAL 30 MG IV (00:05)
[2018-03-18] MEDS: SODIUM CHLORIDE 0.9% 1,000 ML 150 ML IV ×3 (00:07→21:16)
[2018-03-18 00:08] LABS: Alanine Aminotransferase 591 IU/L (9-52); Alkaline Phosphatase 161 U/L (38-126); Aspartate Aminotransferase 226 IU/L (14-36); BUN Creatinine Ratio 13.8 (6-22); Bilirubin Total 0.7 mg/dL (0.2-1.3); Blood Urea Nitrogen 11 mg/dL (7-17); Carbon Dioxide 22 mmol/L (22-32); Chloride 106 mmol/L (98-107); Estimated Glomerular Filt Rate > 60.0 mL/min (>60); Glucose 114 mg/dL (70-100); Potassium 3.5 mmol/L (3.4-5.1); Sodium 142 mmol/L (137-145); Total Protein 8.7 g/dL (6.3-8.2)
[2018-03-18 00:09] LABS: Albumin 4.6 g/dL (3.5-5.0); Albumin Globulin Ratio 1.1 (1.0-2.8); Globulin 4.1 g/dL (1.7-4.1); HEMOLYSIS < 15 (0-50)
[2018-03-18 00:13] LABS: PTT Partial Thromboplastin Tim 32 SECONDS (26.4-36.2)
[2018-03-18 00:25] LABS: Lipase 298 U/L (23-300)
--- NOTE | 2018-03-18 00:51 | ED_ITS ---
HPI - Abdominal Pain General Chief Complaint: Abdominal Pain Stated Complaint: abdomen pain, nausea Time Seen by Provider: 03/17/18 23:45 Source: patient Mode of arrival: ambulatory Limitations: no limitations History of Present Illness HPI narrative: The patient was recently admitted with biliary colic and gallstone pancreatitis. She is from [place]. After admission the pain resolved. Cholecystectomy is planned, however the patient hoped to return home to [place]. She was discharged earlier today. She stopped to eat after discharge. She developed severe right upper quadrant pain radiating to the back once again. She has had no fever. She has no nausea vomiting at this time. She has decided to return, hopefully for readmission for cholecystectomy. Her medical history is otherwise benign. Related Data Home Medications Medication Instructions Recorded Confirmed atorvastatin 10 mg PO DAILY 03/16/18 03/16/18 metformin 2,000 mg PO BID 03/16/18 03/16/18 sertraline 100 mg PO DAILY 03/16/18 03/16/18 Allergies Allergy/AdvReac Type Severity Reaction Status Date / Time SULFA (sulfonamide) Allergy Unknown Uncoded 03/17/18 23:30 Review of Systems Constitutional Denies chills, Denies fever(s), Denies lethargy and Denies weakness ENT Ears, Nose, Mouth, and Throat: Reports other (No sore throat) Cardiovascular Denies chest pain, Denies palpitations and Denies dyspnea Respiratory Denies chest congestion, Denies cough and Denies dyspnea Gastrointestinal Gastrointestinal: Reports as per HPI, Reports abdominal pain, Denies dyspepsia, Denies heartburn, Denies diarrhea and Denies vomiting Genitourinary Denies urinary frequency and Reports other (She is currently on her menstrual cycle.) Musculoskeletal Denies joint swelling and Reports other (No edema) Integumentary/Breasts Denies erythema and Denies rash Neurologic Denies confusion, Denies focal weakness and Denies weakness Psychiatric Denies confusion Endocrine Denies palpitations [facility] Medical History Cholelithiasis (Acute) Diabetes (Acute) Social History household members: children Smoking Status: Former smoker Exam Initial Vital Signs Initial Vital Signs: Vital Signs Temperature 98.7 F 03/17/18 23:15 Pulse Rate 80 03/17/18 23:15 Respiratory Rate 17 03/17/18 23:15 Blood Pressure 117/71 03/17/18 23:15 Pulse Oximetry 100 03/17/18 23:15 Const General: cooperative, healthy appearing and well developed Nutritional Appearance: well nourished Orientation: alert, awake and oriented x3 HENMT Head: normocephalic and atraumatic Mouth: oral mucosae normal Eyes Conjunctivae: conjunctivae normal Sclera: sclerae normal Resp Effort & Inspection: normal respiratory effort, able to speak in complete sentences, no respiratory distress and no use of accessory muscles Auscultation: clear to auscultation bilaterally, no rales, no rhonchi and no wheezes Cardio Rate: regular rate Rhythm: regular rhythm Heart Sounds: no click, no gallops, no murmurs and no rubs Pulses: normal peripheral pulses GI Palpation: No hepatomegaly and tender (Right upper quadrant tenderness with guarding but no rebound. No distention.) Auscultation: normal bowel sounds Back/Spine/Pelvis Back: No CVA tenderness Skin General: no rashes or lesions noted Extrem General: no pedal edema and no calf tenderness Course Orders Ordered: ED Orders 03/17/18 23:40 Complete Blood Count AUTO DIFF Stat Comprehensive Metabolic Panel Stat Lipase Stat Partial Thromboplastin Time Stat Prothrombin Time INR Stat Sodium Chloride (Normal Saline 0.9%) 1,000 mls @ 150 mls/hr IV CONT PHILLY Last Admin: 03/18/18 00:07 Dose: 150 mls/hr Sodium Chloride (Normal Saline 0.9%) 1,000 mls @ 150 mls/hr IV CONT PHILLY Discontinued Medications Ketorolac Tromethamine (Toradol) 30 mg IV NOW ONE Stop: 03/17/18 23:54 Last Admin: 03/18/18 00:05 Dose: 30 mg Vital Signs - 8 hr 03/17/18 23:15 Temperature 98.7 F Pulse Rate 80 Respiratory Rate 17 Blood Pressure 117/71 Pulse Oximetry 100 MDM - Abdominal Pain Lab Data Attestation: I reviewed the patient's lab results. Result diagrams: 03/17/18 23:40 03/17/18 23:40 Lab Results 03/17/18 03/17/18 03/17/18 Range/Units 23:40 23:40 23:40 WBC 8.6 D (4.5-11.0) X10^3/uL RBC 4.16 (4.0-5.2) X10^6/uL Hgb 12.5 (12.0-16.0) g/dL Hct 36.6 (36-46) % MCV 87.9 (80-100) fL MCH 30.0 (26-34) PG MCHC 34.1 (30-36) % RDW 13.1 (11.6-14.8) % Plt Count 298 (150-400) X10^3/uL Neut % (Auto) 66.2 (50-75) % Lymph % (Auto) 27.3 (25-40) % [place] % (Auto) 5.4 (3-14) % Eos % (Auto) 0.6 L (2-4) % Baso % (Auto) 0.5 (0-2) % Neut # (Auto) 5700 (1232-9510) /uL PT 11.1 (10.1-12.7) SECONDS INR 1.0 (0.9-1.3) APTT 32 (26.4-36.2) SECONDS Sodium 142 (137-145) mmol/L Potassium 3.5 (3.4-5.1) mmol/L Chloride 106 (98-107) mmol/L Carbon Dioxide 22 (22-32) mmol/L BUN 11 (7-17) mg/dL Creatinine 0.80 (0.52-1.04) mg/dL Estimated GFR > 60.0 (>60) mL/min BUN/Creatinine Ratio 13.8 (6-22) Glucose 114 H (70-100) mg/dL Calcium 10.0 (8.4-10.2) mg/dL Total Bilirubin 0.7 (0.2-1.3) mg/dL AST 226 H (14-36) IU/L ALT 591 H (9-52) IU/L Alkaline Phosphatase 161 H (38-126) U/L Total Protein 8.7 H (6.3-8.2) g/dL Albumin 4.6 (3.5-5.0) g/dL Globulin 4.1 (1.7-4.1) g/dL Albumin/Globulin Ratio 1.1 (1.0-2.8) Lipase 298 (23-300) U/L [facility] Narrative Medical decision making narrative: The patient was initially admitted for cholecystectomy. She has recurrence of significant biliary colic. Dr. Guillen has agreed to readmit the patient, with the plan to for the patient to undergo cholecystectomy. Discharge Plan Departure Patient Disposition: Admitted As Inpatient Clinical Impression: Acute cholecystitis Prescriptions: No Action sertraline 100 mg Tablet 100 mg PO DAILY RF: 0 atorvastatin 10 mg Tablet 10 mg PO DAILY RF: 0 metformin 1,000 mg Tablet 2,000 mg PO BID RF: 0
[2018-03-18 01:28] VITALS: BMI 48.4
[2018-03-18 01:52] VITALS: BP 127/79; PULSE 66; RESP 18; TEMP 36.7; O2SAT 100
--- NOTE | 2018-03-18 04:03 | PC.NURSE ---
Pt is AxOx3, independent of ADLS. No pain reported since receiving Toradol in the ER. Pt states the pain only really starts to hurt again whenever she eats. Pt is NPO, receiving NS@150mL/hr. No nausea/vomiting. Bowel sounds present. Call anderson in reach
[2018-03-18 08:13] VITALS: BP 111/67; PULSE 60; RESP 16; TEMP 36.4; O2SAT 98
[2018-03-18 09:55] LABS: Bacteria Urine None Seen; RBC Urine None Seen (0-5/HPF); WBC Urine None Seen (0-5/HPF)
[2018-03-18 09:58] LABS: Appearance Urine UA CLEAR; Bilirubin Urine UA 1+ (NEGATIVE); Color Urine UA YELLOW; Glucose Urine UA TRACE g/dL (Normal); Ketones Urine UA NEGATIVE (NEGATIVE); Leukocyte Esterase Urine UA NEGATIVE (NEGATIVE); Nitrite Urine UA Negative (Negative); Occult Blood Urine UA NEGATIVE (Negative); Protein Urine UA NEGATIVE (Negative); Specific Gravity Urine UA 1.025 (1.000-1.035)
[2018-03-18 10:00] LABS: Pregnancy Test Urine Negative (Negative)
[2018-03-18 10:03] LABS: Urine Comments Microscopic Normal
[2018-03-18 10:04] LABS: Culture Indicated Urine Cult Not Indicated
[2018-03-18 10:34] LABS: Ictotest Urine Positive (Negative)
[2018-03-18] MEDS: CEFOTETAN 2 GM/50 ML PIGGYBACK IV ×2 (11:36→21:16)
[2018-03-18 12:52] VITALS: BP 120/75; PULSE 56; RESP 16; TEMP 36.3; O2SAT 100
--- NOTE | 2018-03-18 13:05 | PM.HP.1 ---
History of Present Illness Date Patient Seen: 03/18/18 Time Patient Seen: 08:13 Chief complaint: abdomen pain, nausea Narrative: Vero is a arsen 32-year-old lady who was discharged from our hospital yesterday after an admission for gallstone pancreatitis. Her plan was to return to [place] and have her gallbladder removed there. Unfortunately she only got to [place] when she had something to eat and experienced acute right upper quadrant pain. She returned to our emergency room. She was seen and evaluated there and determined that her labs were in reasonable limits. She has been admitted for definitive cholecystectomy. Patient History Medical History Cholelithiasis (Acute) Diabetes (Acute) Family & Social History Family History: Reviewed 03/18/18 by Michelle Guillen MD Social History: household members children Prior Living Arrangements House Safety & Behavioral: Feels Safe in Current Yes Environment Been Physically Hurt or No Threatened By a Person Suicidal Ideation Description None Suicide Plan Description No Plan Tobacco & Substance use: Smoking Status Former smoker alcohol intake frequency holiday/special occasion Substance Use Type does not use Meds Home Medications Medication Instructions Recorded Confirmed Type atorvastatin 10 mg PO DAILY 03/16/18 03/18/18 History metformin 2,000 mg PO DAILY 03/16/18 03/18/18 History sertraline 125 mg PO DAILY 03/16/18 03/18/18 History Allergies Allergy/AdvReac Type Severity Reaction Status Date / Time Sulfa (Sulfonamide Allergy Unknown Verified 03/18/18 09:01 Antibiotics) Review of Systems Review of Systems All systems reviewed & are unremarkable except as noted in HPI and below Exam Vital Signs (past 8 hours): - 03/18/18 08:13 03/18/18 12:52 Temperature 97.5 F L 97.4 F L Pulse Rate 60 56 L Respiratory Rate 16 16 Blood Pressure 111/67 120/75 Pulse Oximetry 98 100 Oxygen Delivery Method Room Air Narrative Exam Narrative: Very pleasant young woman in no distress now. HEENT: Normocephalic and atraumatic, pupils equal round reactive to light accommodation with anicteric sclera. Lungs: Clear bilaterally Heart: Regular rate rhythm Abdomen: Soft, rotund, active bowel sounds. No acute right upper quadrant tenderness today. Extremities: Warm and well perfused Objective Labs Result Diagrams: 03/17/18 23:40 03/17/18 23:40 Labs: Laboratory Results - last 24 hr 03/17/18 03/17/18 03/17/18 23:40 23:40 23:40 WBC 8.6 D RBC 4.16 Hgb 12.5 Hct 36.6 MCV 87.9 MCH 30.0 MCHC 34.1 RDW 13.1 Plt Count 298 Neut % (Auto) 66.2 Lymph % (Auto) 27.3 [place] % (Auto) 5.4 Eos % (Auto) 0.6 L Baso % (Auto) 0.5 Neut # (Auto) 5700 PT 11.1 INR 1.0 APTT 32 Sodium 142 Potassium 3.5 Chloride 106 Carbon Dioxide 22 BUN 11 Creatinine 0.80 Estimated GFR > 60.0 BUN/Creatinine Ratio 13.8 Glucose 114 H Calcium 10.0 Total Bilirubin 0.7 AST 226 H ALT 591 H Alkaline Phosphatase 161 H Total Protein 8.7 H Albumin 4.6 Globulin 4.1 Albumin/Globulin Ratio 1.1 Lipase 298 Urine Color Urine Appearance Urine pH Ur Specific [place] Urine Protein Urine Glucose (UA) Urine Ketones Urine Occult Blood Urine Nitrate Urine Bilirubin Urine Ictotest Urine Urobilinogen Ur Leukocyte Esterase Urine RBC Urine WBC Urine Bacteria Ur Culture Indicated? Micro UA Comment Urine Test 03/18/18 03/18/18 03/18/18 09:48 09:49 09:49 WBC RBC Hgb Hct MCV MCH MCHC RDW Plt Count Neut % (Auto) Lymph % (Auto) [place] % (Auto) Eos % (Auto) Baso % (Auto) Neut # (Auto) PT INR APTT Sodium Potassium Chloride Carbon Dioxide BUN Creatinine Estimated GFR BUN/Creatinine Ratio Glucose Calcium Total Bilirubin AST ALT Alkaline Phosphatase Total Protein Albumin Globulin Albumin/Globulin Ratio Lipase Urine Color Yellow Urine Appearance Clear Urine pH 6.0 Ur Specific [place] 1.025 Urine Protein Negative Urine Glucose (UA) Trace Urine Ketones Negative Urine Occult Blood Negative Urine Nitrate Negative Urine Bilirubin 1+ H Urine Ictotest Positive H Urine Urobilinogen 2.0 H Ur Leukocyte Esterase Negative Urine RBC None seen Urine WBC None seen Urine Bacteria None seen Ur Culture Indicated? Cult not indicated Micro UA Comment Microscopic normal Urine Test Negative Assessment & Plan Plan: Assessment/Plan Narrative: 32-year-old lady 1 year status post gastric sleeve with 100 lb weight loss. She now has multiple small gallstones and has had past the stone with resultant pancreatitis at least twice that she knows of. She needs to have her gallbladder removed. I have put her on the schedule for 9 o'clock in the morning for definitive surgery. We will try to perform a laparoscopic intraoperative cholangiogram at the time of the procedure.
--- NOTE | 2018-03-18 14:51 | CM.IDA ---
DCP Assessment Note: Pt is a 32 yo female, [place] of [place]. Pt readmitted w/abd pain. DC home 03/16, drove as far as [place] , ate, and came back to ER w/abd pain. Pt is scheduled for the OR Wednesday AM. Pt's Insurance is Welfare Out of State. PCP Dr Pollock. According to review of chart; pt indp at baseline, lives in [place] w/her children and is from [place] originally. Pt w/ recent h/o gastric sleeve procedure w/[address] Guillen has pt scheduled for the removal of her gallbladder tomorrow morning. This SUPERVISORY AIDE following closely for any DC needs that might arise. 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 Is this patient on Medicare? No Prior Living Arrangements House Household Members children Type of transporation used prior to Drives own vehicle admit Independent with ADL's Yes Is patient alert and oriented? Yes Caregiver for Another Yes: Kids Comment Surgery tomorrow w/Dr Guillen Discharge Plan Home Transportation Arrangement Pt has a friend who can drive her back to [place] and then take the train back here. Unsure of pt's needs after this surgery, possibly recoup here w/friend then head back to [place] (?) Additional Comment Following closely. Review Status In Process Next Review Type Discharge Review
[2018-03-18 15:30] VITALS: BP 122/78; PULSE 62; RESP 16; TEMP 36.6; O2SAT 99
[2018-03-18 19:35] VITALS: BP 121/75; PULSE 56; RESP 16; TEMP 36.5; O2SAT 97
[2018-03-18] MEDS: SERTRALINE 50 MG TABLET 125 MG PO (21:15)
[2018-03-18 23:36] VITALS: BP 123/75; PULSE 60; RESP 16; TEMP 36.5; O2SAT 100
[2018-03-19] VITALS (16 sets, daily range): BP systolic 104–127; BP diastolic 49–82; PULSE 56–77; RESP 12–16; TEMP 36.1–36.8; O2SAT 97–100; BMI 48.4
--- NOTE | 2018-03-19 | DI.RAD.S_ITS ---
PROCEDURE: XR CHOLANGIOGRAM OPERATIVE INDICATIONS: LAP DEJAH COMPARISON: [facility], MR, MR ABDOMEN WO CON, 03/16/2018, 15:52. [facility], US, US ABDOMEN COMPLETE, 03/16/2018, 5:37. FINDINGS: Biliary ducts: The surgeon injected contrast into the biliary ducts after cannulation of the cystic duct stump. Visualized intra- and extrahepatic bile ducts are normal in caliber, without strictures. No intraluminal filling defects to suggest retained ductal stones or sludge. No evidence for iatrogenic ductal injury. Duodenum: Contrast flows promptly through the sphincter of Oddi into the duodenum, which appears normal in caliber. IMPRESSION: 1. No persistent filling defects to suggest retained common duct stones. Dictated by: Micah Dick M.D. on 03/19/2018 at 10:45 Approved by: Micah Dick M.D. on 03/19/2018 at 10:46
--- NOTE | 2018-03-19 | PATH_ITS ---
[facility] Accession Number: [id number] . 01 Material submitted: . GALLBLADDER . 02 Diagnosis: Gallbladder: Cholelithiasis with associated chronic cholecystitis and cholesterolosis. . . I03/23/2018 . 02 Electronically signed: . John Darden MD, Pathologist NPI- [id number] . 01 Gross description: . Received in formalin, labeled 1) Gallbladder, is an intact gallbladder (length-7.3 cm, diameter-4.5 cm) with green smooth shiny serosa and a patent cystic duct. A possible lymph node (1.5 x 0.7 x 0.5 cm) is identified. The lumen contains green viscous bile and multiple yellow round hard calculi (6.5 x 3.5 x 0.1 cm in aggregate). The mucosa is green and yellow with a rough texture. The wall is up to 0.1 cm thick. No nodules, masses or lesions are identified. Section code: (A1) cystic duct resection margin and two serial sections from the body; (A2) two longitudinal sections from the fundus; (A3) possible lymph node, bisected. ([id number]) /MRV . 02 Pathologist provided ICD-10: K80.64 . 02 CPT . 426468 Performed at: 01 [facility] [address] [place] [address], [place], [place] [id number] MD Micah Queen MD Phone: [phone] Performed at: 02 [facility] [address] [place], [place] [id number] MD Andrea Salmeron MD Phone: [phone]
[2018-03-19] MEDS: SODIUM CHLORIDE 0.9% 1,000 ML 150 ML IV (04:01)
[2018-03-19] MEDS: CEFOTETAN 2 GM/50 ML PIGGYBACK IV ×2 (08:28→21:30)
[2018-03-19] MEDS: LACTATED RINGERS 1,000 ML 42 ML IV ×3 (08:45→11:07)
[2018-03-19] MEDS: MIDAZOLAM 2 MG/2 ML VIAL IV (08:55)
--- NOTE | 2018-03-19 09:51 | SUR.OPER ---
Supine on padded OR bed, head on pillow and taped wedge, arm padded and tucked at side, legs uncrossed, safety belt at thigh, tape over blanket over lower legs and foot support board at feet.
[2018-03-19] MEDS: LIDOCAINE 1% W/EPI INJ 20 ML INJ (10:22)
[2018-03-19] MEDS: BUPIVACAINE 0.5% (PF) 30 ML VIAL INJ (10:24)
[2018-03-19] MEDS: IOPAMIDOL 50 ML VIAL INJ (10:25)
[2018-03-19] MEDS: ACETAMINOPHEN IV 1,000 MG/100 ML VIAL 400 MG IV (10:26)
--- NOTE | 2018-03-19 10:44 | P.OP_ITS ---
Operative Date/Time/Diagnoses Date of procedure: 03/19/18 Time of procedure: 10:42 Pre-op diagnosis: Cholelithiasis and gallstone pancreatitis Post-op diagnosis: same Procedure & Clinicians Procedure: Laparoscopic cholecystectomy with intraoperative cholangiogram Same procedure as scheduled: Yes Indications: Recurrent right upper quadrant pain with cholelithiasis and gallstone pancreatitis Surgeon: Michelle Guillen Anesthesia Type: General (Goetter) and Local Operative Notes Closure Type: primary Specimen(s): other (Gallbladder to pathology in formalin) Estimated Blood Loss (mL): 25 Procedure in detail: After obtaining informed consent, the patient was brought to the operating room and placed in the supine position on the operating table. Following successful induction of general endotracheal anesthesia, appropriate padding of all bony prominences, and placement of appropriate monitors, the abdomen was prepped and draped in a standard surgical fashion. A timeout was held per DCOAP protocol. Following infiltration with local anesthetic to create a field block, an incision was created superior to the umbilicus and carried down through the skin and subcutaneous tissue to reveal the fascia below. 2-0 Vicryl retention sutures are placed on either side of the midline and the abdomen was entered under direct vision using a 15 blade scalpel. A 10 mm blunt trocar was placed in the abdominal cavity and it was insufflated to 15 mm of Hg pressure. The patient was placed in reverse Trendelenburg position with the left side rotated toward the floor. A second 5 mm trocar was placed in the midepigastrium and 2 more in the right upper quadrant again after infiltration with local anesthetic and under direct vision with the camera. The gallbladder was grasped in the fundus and elevated up over the liver. This revealed the cholecysto hepatoduodenal ligament. The cystic duct and artery were carefully identified with gentle dissection. At this point we elected to proceed with an intraoperative cholangiogram. This was done by cleat placing a clip distally on the cystic duct and gently creating an opening in the duct just proximal to the clip. A taut cholangiocatheter was gently placed into this opening and clipped closed. The cholangiogram revealed an open cystic duct as well as intrahepatic and common ducts. Contrast spilled freely into the duodenum. The Cholangiocath was removed and we continued with the procedure. 3 clips were placed proximally on the cystic duct and one distally. The duct was divided between these clips. 2 clips were placed proximally on the cystic artery and one distally. The artery was divided between these clips. The gallbladder was then liberated from its bed in the liver using Bovie cautery. It was placed in an Endoscopic bag and removed via the umbilical port. The camera was returned to the abdominal cavity and the operative site examined carefully. Hemostasis was obtained with cautery. The abdomen was irrigated copiously with warm saline solution and then aspirated free of all particulate matter and fluid. Trochars were then removed under direct vision and the abdomen desufflated by giving the patient a Valsalva maneuver. The umbilical incision was closed with interrupted Prolene, Vicryl suture and Monocryl sutures were placed in the skin. The remaining skin incisions were closed with Monocryl suture. All sponge, needle, and instrument counts were correct at the conclusion of the case. The patient was allowed to awaken from anesthesia without difficulty and taken to the post anesthesia care unit in good condition. Complications: none Condition: stable Disposition: PACU Plan for aftercare: 1. Return to [facility] for continued convalescence 2. Plan for discharge tomorrow if her pain is well controlled
[2018-03-19] MEDS: LACTATED RINGERS 1,000 ML 75 ML IV (11:52)
[2018-03-19] MEDS: KETOROLAC 30 MG/ML VIAL IV ×2 (17:37→18:37)
[2018-03-19] MEDS: SERTRALINE 50 MG TABLET 125 MG PO (21:30)
[2018-03-20] MEDS: KETOROLAC 30 MG/ML VIAL IV ×3 (00:35→13:04)
--- NOTE | 2018-03-20 01:13 | PC.NURSE ---
Ambulating in the hallway & in her room. Denies any nausea & had an incident. Passing flatus & small loose stool. Requested to shower, did well when showered, no C/O dizziness.
--- NOTE | 2018-03-20 01:15 | PC.NURSE ---
0020 Checked pt. to medicate him for pain. But he was sound asleep, will monitor.
[2018-03-20] MEDS: LACTATED RINGERS 1,000 ML 75 ML IV (03:15)
[2018-03-20 05:00] VITALS: BP 123/72; PULSE 67; RESP 16; TEMP 36.4; O2SAT 99
[2018-03-20 05:21] LABS: Add Manual Diff / Slide Review NO; Basophils Percent Auto 0.5 % (0-2); Eosinophils Percent Auto 2.2 % (2-4); Hematocrit 31.3 % (36-46); Hemoglobin 10.7 g/dL (12.0-16.0); Lymphocytes Percent Auto 28.2 % (25-40); Mean Corpuscular HGB Conc 34.1 % (30-36); Mean Corpuscular Hemoglobin 29.8 PG (26-34); Mean Corpuscular Volume 87.3 fL (80-100); Monocytes Percent Auto 7.8 % (3-14); Neutrophils Absolute Auto 4500 /uL (3000-5900); Neutrophils Percent Auto 61.3 % (50-75); Platelet Count 231 X10^3/uL (150-400); Red Blood Cell Count 3.58 X10^6/uL (4.0-5.2); Red Cell Distribution Width 13.3 % (11.6-14.8); White Blood Cell Count 7.4 X10^3/uL (4.5-11.0)
[2018-03-20 05:38] LABS: Alanine Aminotransferase 504 IU/L (9-52); Albumin 3.4 g/dL (3.5-5.0); Alkaline Phosphatase 118 U/L (38-126); Aspartate Aminotransferase 121 IU/L (14-36); BUN Creatinine Ratio 8.3 (6-22); Bilirubin Total 0.3 mg/dL (0.2-1.3); Blood Urea Nitrogen 5 mg/dL (7-17); Carbon Dioxide 24 mmol/L (22-32); Chloride 107 mmol/L (98-107); Estimated Glomerular Filt Rate > 60.0 mL/min (>60); Globulin 3.3 g/dL (1.7-4.1); Glucose 93 mg/dL (70-100); HEMOLYSIS < 15 (0-50); Potassium 3.4 mmol/L (3.4-5.1); Sodium 143 mmol/L (137-145); Total Protein 6.7 g/dL (6.3-8.2)
[2018-03-20] MEDS: PANTOPRAZOLE 20 MG TABLET PO (06:01)
[2018-03-20] MEDS: CEFOTETAN 2 GM/50 ML PIGGYBACK IV (07:56)
[2018-03-20 08:00] VITALS: BP 129/71; PULSE 59; RESP 16; TEMP 36.4; O2SAT 98
[2018-03-20] MEDS: METFORMIN HCL 500 MG TABLET 2000 MG PO (08:05)
[2018-03-20] MEDS: ATORVASTATIN 10 MG TABLET PO (08:13)
[2018-03-20 12:00] VITALS: BP 120/78; PULSE 65; RESP 18; TEMP 36.6; O2SAT 99
--- NOTE | 2018-03-20 14:11 | PM.PN.1 ---
Subjective Date Patient Seen: 03/20/18 Time Patient Seen: 14:11 Interval history: Vero is in reasonable spirits today. She reports that she feels weak and dizzy. She has only eaten a little bit of clear liquid food. She would be interested in trying something a little more substantial. She has refused all pain medicine because she does not like the way it makes her feel. She has not walked in the halls. Exam Vital Signs (past 8 hours): - 03/20/18 08:00 03/20/18 12:00 Temperature 97.6 F 97.9 F Pulse Rate 59 L 65 Respiratory Rate 16 18 Blood Pressure 129/71 H 120/78 Pulse Oximetry 98 99 Oxygen Delivery Method Room Air Oxygen Flow Rate 0 Narrative Exam Narrative: Lungs: Clear bilaterally Heart: Regular rate and rhythm Abdomen: Soft, appropriately tender to palpation, active bowel sounds. Extremities: No edema Objective Labs Result Diagrams: 03/20/18 05:03 03/20/18 05:03 Labs: Laboratory Results - last 24 hr 03/20/18 03/20/18 05:03 05:03 WBC 7.4 RBC 3.58 L Hgb 10.7 L Hct 31.3 L MCV 87.3 MCH 29.8 MCHC 34.1 RDW 13.3 Plt Count 231 Neut % (Auto) 61.3 Lymph % (Auto) 28.2 [place] % (Auto) 7.8 Eos % (Auto) 2.2 Baso % (Auto) 0.5 Neut # (Auto) 4500 Sodium 143 Potassium 3.4 Chloride 107 Carbon Dioxide 24 BUN 5 L Creatinine 0.60 Estimated GFR > 60.0 BUN/Creatinine Ratio 8.3 Glucose 93 Calcium 9.0 Total Bilirubin 0.3 AST 121 H ALT 504 H Alkaline Phosphatase 118 Total Protein 6.7 Albumin 3.4 L Globulin 3.3 Albumin/Globulin Ratio 1.0 Assessment & Plan Plan: Assessment/Plan Narrative: 1. Postop day 1 after laparoscopic cholecystectomy following admission for gallstone pancreatitis and readmission. 2. Making good progress but still not ready for discharge. She needs to be able to walk and eat prior to leaving the hospital. 3. Will advance diet and encourage ambulation. Hopefully she will be ready for discharge in the morning.
--- NOTE | 2018-03-20 14:59 | PM.DS.1 ---
History of Present Illness Chief complaint: abdomen pain, nausea Narrative: eVro is a [place] 32-year-old lady who was discharged from our hospital yesterday after an admission for gallstone pancreatitis. Her plan was to return to [place] and have her gallbladder removed there. Unfortunately she only got to [place] when she had something to eat and experienced acute right upper quadrant pain. She returned to our emergency room. She was seen and evaluated there and determined that her labs were in reasonable limits. She has been admitted for definitive cholecystectomy. Discharge Providers Date of admission: 03/18/18 01:25 Primary care physician: Darci Pollock MD Discharge provider: Michelle Guillen MD Summary Discharge Diagnosis: Cholelithiasis and cholecystitis with gallstone pancreatitis Hospital Course: Vero was readmitted to the hospital and underwent an uneventful laparoscopic cholecystectomy with intraoperative cholangiogram. Today, she is tolerating a liquid diet without difficulty and easily advancing to softer foods. Her pain is well controlled. She has successfully ambulated in the halls without assistance. Status at Discharge Cognitive/behavioral status at discharge: Normal Functional status at discharge: independent ambulation Overall status at discharge: patient is progressing back to baseline Time Spent with Patient Less than 30 minutes Exam Vital Signs (past 8 hours): - 03/20/18 08:00 03/20/18 12:00 Temperature 97.6 F 97.9 F Pulse Rate 59 L 65 Respiratory Rate 16 18 Blood Pressure 129/71 H 120/78 Pulse Oximetry 98 99 Oxygen Delivery Method Room Air Oxygen Flow Rate 0 Objective Labs Result Diagrams: 03/20/18 05:03 03/20/18 05:03 Labs: Laboratory Results - last 24 hr 03/20/18 03/20/18 05:03 05:03 WBC 7.4 RBC 3.58 L Hgb 10.7 L Hct 31.3 L MCV 87.3 MCH 29.8 MCHC 34.1 RDW 13.3 Plt Count 231 Neut % (Auto) 61.3 Lymph % (Auto) 28.2 [place] % (Auto) 7.8 Eos % (Auto) 2.2 Baso % (Auto) 0.5 Neut # (Auto) 4500 Sodium 143 Potassium 3.4 Chloride 107 Carbon Dioxide 24 BUN 5 L Creatinine 0.60 Estimated GFR > 60.0 BUN/Creatinine Ratio 8.3 Glucose 93 Calcium 9.0 Total Bilirubin 0.3 AST 121 H ALT 504 H Alkaline Phosphatase 118 Total Protein 6.7 Albumin 3.4 L Globulin 3.3 Albumin/Globulin Ratio 1.0 Discharge Plan Discharge Plan Patient Disposition: Home, Self-Care Provider Discharge Instructions Diet: Low-fat Activity: Do not lift more than 10 lb for at least 6 weeks Wound Care Report to your healthcare provider any signs of infection, such as:: chills, fever, night sweats, increased pain and unusual drainage Other wound treatment: Keep wound clean, dry, and intact. You may shower as desired but do not soak in water for at least 2 weeks. Discharge Data Primary Care Provider: Darci Pollock Attending Provider: Michelle Guillen Admit Date/Time: 03/18/18 01:25
--- NOTE | 2018-03-20 17:10 | PC.NURSE ---
Pt up ad cleo in room. Anticipating discharge to home. Denies need for pain medications prior to departure. Pt was given written and verbal discharge instructions. Questions answered as appropriate. Script for percocet provided to pt. Follow up instructions given. Pt left hospital with ride waiting to stay with friend during recovery. [employer] escort. Pt valuables accounted for and in pt's possession. Pt left hospital in stable condition.
== END 2018-03-20 16:35 | disposition home or self-care (01) | DRG 418 ==
LOC: ED 03-18 00:53 → AC 03-18 01:26
PROVIDERS: Admitting Provider Surgery; Emergency Provider Emergency Medicine; PCP Family Medicine; Visit Provider Surgery
PROC: 0FT44ZZ Resection of Gallbladder, Percutaneous Endoscopic Approach (ICD-10-PCS; CPT 47562; principal; 2018-03-19 09:00)
DX: K80.00 Calculus of gallbladder with acute cholecystitis without obstruction (principal); Z68.42 Body mass index [BMI] 45.0-49.9, adult; Z98.84 Bariatric surgery status; Z87.891 Personal history of nicotine dependence; E66.01 Morbid (severe) obesity due to excess calories
CPT/HCPCS: 36415; 47563; 74300; 80053; 81001; 81025; 82962; 83690; 85025; 85610; 85730; 99221; 99283; J0131; J0330; J1885; J2250; J2405; J2704; J2765; J3010

== ENCOUNTER 2018-04-05 15:19 | Emergency (ER) | payer OTHER, SELFPAY ==
[2018-04-05 15:32] VITALS: BP 135/88; PULSE 79; RESP 14; TEMP 36.2; O2SAT 97
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
[2018-04-05 16:12] VITALS: BP 116/69; PULSE 82; RESP 16; O2SAT 99
== END 2018-04-05 16:12 | disposition home or self-care (01) ==
PROVIDERS: Emergency Provider Nurse Practitioner Family
DX: S16.1XXA Strain of muscle, fascia and tendon at neck level, initial encounter (principal); V49.9XXA Car occupant (driver) (passenger) injured in unspecified traffic accident, initial encounter
CPT/HCPCS: 99282